=== PATIENT | male | born 1965 | race Caucasian/White ===

== ENCOUNTER → 2017-05-08 | Outpatient (CLI) | payer MEDICARE, OTHER ==
[~2017-05-08] MED LIST: ACETAMINOPHEN PO; ACETAMINOPHEN325 M1 PO; ANTACID CHEWAB1 EACH PO; BAZA TOP; BISA-LAX10 MG/SUP1 RC; BISACODYL10 MG/SUPP PR; CALCIUM 5001 TAB PO; CALCIUM CARBON500 M1 PO; CALCIUM CITRAT1 EACH PO; CERTAVITE W/LUT1 TA1 PO; CERTAVITE-LUTEI1 TA1 PO; CHRONULAC10 GM/15 M PO; CHRONULAC10 GM/151 PO; CLARITIN10 M2 PO; COLACE50 MG PO; DEEP SEA; DULCOLAX10 MG PR; E.E.S. 200200 MG/5 M PO; EES PO; FLUNISOLIDE25 ML; FLUNISOLIDE25 ML NS; KEPPRA500 M2 PO; LACTULOSE10 GM/151 PO; MIRALAX255 GM PO; NASA MIST SALIN75 ML NS; NEXIUM PO; OCEAN104 ML; PRILOSEC20 M1 PO; PRILOSEC20 MG PO; PROBIOTIC1 EACH PO; SENNA LAXATIVE8.6 M1 PO; SENNA-LAX8.6 M1 PO; SENNA8.6 M1 PO; SINGULAIR PO; ZYRTEC10 M1 PO; ZYRTEC10 M2 PO; [UNRECOGNIZED DRUG - CODE] PO
== END | disposition home or self-care (01) ==
LOC: CRAD 09:49
DX: R13.10 Dysphagia, unspecified (principal)
CPT/HCPCS: 74230; 92611; G8996-GN; G8997-GN; G8998-GN

== ENCOUNTER 2017-05-12 10:50 | Inpatient (IN) | payer MEDICARE, OTHER ==
--- NOTE | ~2017-05-12 | HP ---
Unit #: [id number] #: [id number] Patient: ZANDRA OREILLY [id number] [address] [address] [id number] MR#: [id number] NAME: ZANDRA OREILLY. ROOM: 232 Age: 51 Sex: M Admission Date: 05/12/2017 : 1965 Attending Physician: Yosi Diaz M.D. Primary Care Physician: Stefano Vasquez Sr., M.D. HISTORY AND PHYSICAL CHIEF COMPLAINT Aspiration. HISTORY OF PRESENT ILLNESS The patient is a 51-year-old male who presented to the [facility] emergency department after an aspiration. The report that I am getting from the emergency room physician is that the patient had a witnessed aspiration and the patient has been n.p.o. The patient has been admitted for observation. Discussion with the family reveals that the patient is known to have some problems with aspiration but given his underlying cri du chat syndrome there is no wish for feeding tubes and that the patient should be allowed to continue eating. The patient has been admitted for monitoring. PAST MEDICAL HISTORY Cri du chat, esophageal reflux, chronic epididymitis with hydrocele, aphasia and dysphagia, chronic constipation, history of recurrent pneumonias and aspiration, seizure disorder. PAST SURGICAL HISTORY Unable to obtain. SOCIAL HISTORY The patient is a former resident of [place], now lives at [facility]. FAMILY HISTORY Unable to obtain. ALLERGIES Influenza virus, penicillins, Levaquin. HOME MEDICATIONS 1. Zyrtec 10 mg daily. 2. Flonase two sprays each nostril daily. 3. Tylenol p.r.n. 4. Nexium 40 mg daily. 5. Senna two tabs p.o. b.i.d. 6. Erythromycin ethyl succinate 400 mg p.o. daily. 7. Lactulose daily. 8. Singulair daily. 9. Hocking spray daily. 10. Fluconazole nitrate topically t.i.d. 11. Dulcolax suppository daily p.r.n. Unit #: [id number] #: [id number] Patient: ZANDRA OREILLY REVIEW OF SYSTEMS Unable to obtain. PHYSICAL EXAMINATION VITAL SIGNS: Temperature 98.5. Pulse 72. Blood pressure 124/78. GENERAL: A 51-year-old male in no acute distress, who appears stated age. HEENT: Pupils are equally round. Extraocular movements intact. Mucous membranes dry. NECK: Supple. No JVD. No lymphadenopathy. CARDIAC: Regular rate and rhythm. No murmurs, gallops or rubs. LUNGS: Clear to auscultation bilaterally. ABDOMEN: Nontender, nondistended. Bowel sounds positive. EXTREMITIES: No cyanosis, clubbing or edema. They are warm and dry. PSYCHIATRIC: Unable to obtain. NEUROLOGICAL: Cranial nerves II-XII intact grossly. The patient moves all extremities equally and with purpose. SKIN: No rashes, bruises or ulcers. MUSCULOSKELETAL: No muscle or joint pain. No muscle or joint swelling. DIAGNOSTIC STUDIES LABORATORY: Laboratories are pending. IMAGING: None. ASSESSMENT AND PLAN 1. Aspiration: The patient will be monitored. Per family wishes diet will be continued. 2. Cri du chat syndrome: Supportive care. 3. Seizure disorder: The patient will be continued on his home antiepileptics. 4. Prophylaxis: The patient has been started on SCDs. Dictated by Joaquin Perez/alpa TD: 05/12/2017 20:55 JOB #: [id number] HISTORY AND PHYSICAL Page 1 of 1 X Yosi Diaz MD X HISTORY AND PHYSICAL
[~2017-05-12 10:50] MED LIST changes: -ACETAMINOPHEN325 M1 PO; -ANTACID CHEWAB1 EACH PO; -BAZA TOP; -DULCOLAX10 MG PR; -LACTULOSE10 GM/151 PO; -OCEAN104 ML; -SENNA8.6 M1 PO; -[UNRECOGNIZED DRUG - CODE] PO
[2017-05-12] MEDS ORDERED: BAZA TOP (16:37)
[2017-05-12] MEDS ORDERED: DULCOLAX10 MG PR (16:37)
[2017-05-12] MEDS ORDERED: ANTACID CHEWAB1 EACH PO (16:38)
[2017-05-12] MEDS ORDERED: OCEAN104 ML (16:38)
[2017-05-12] MEDS ORDERED: SINGULAIR PO (16:39)
[2017-05-12] MEDS ORDERED: LACTULOSE10 GM/151 PO (16:39)
[2017-05-12] MEDS ORDERED: [UNRECOGNIZED DRUG - CODE] PO (16:39)
[2017-05-12] MEDS ORDERED: NEXIUM PO (16:40)
[2017-05-12] MEDS ORDERED: SENNA8.6 M1 PO (16:40)
[2017-05-12] MEDS ORDERED: ZYRTEC10 M2 PO (16:41)
[2017-05-12] MEDS ORDERED: ACETAMINOPHEN325 M1 PO (16:41)
[2017-05-12] MEDS ORDERED: FLUNISOLIDE25 ML (16:41)
[2017-05-12 21:17] LABS: BASOPHIL# 0.1 X10e3 (0-0.3); EOSINOPHIL# 0.2 X10e3 (0-0.7); HEMATOCRIT 34.2 % (38.0-50.0); HEMOGLOBIN 11.2 gm/dL (13.0-16.0); LYMPHOCYTE# 2.5 X10e3 (1.0-3.5); MEAN CELL VOLUME 94.9 FL (83-96); MEAN CORPUSCULAR HGB CONC 32.7 g/dL (30-36); MEAN PLATELET VOLUME 8.2 FL (6.5-11.5); MONOCYTE# 0.7 X10e3 (0-1.0); MONOCYTE% 8.9 % (3.0-12.0); NEUTROPHIL% 53.1 % (40-75); PLATELET COUNT 227 X10e3 (140-420); RED BLOOD COUNT 3.61 X10e (3.90-5.60); RED CELL DISTRIBUTION WIDTH 14.2 % (11.0-15.5); WHITE BLOOD COUNT 7.5 X10e3 (4.0-10.5)
[2017-05-12 21:19] LABS: DIFF IND NO
[2017-05-12 21:42] LABS: ALBUMIN SERUM 3.7 g/dL (3.5-5.0); BILIRUBIN,TOTAL 0.6 mg/dL (0.2-2.0); BUN/CREATININE RATIO 33.33; CALCIUM SERUM 8.7 mg/dL (8.4-10.2); CREATININE SERUM 0.6 mg/dL (0.6-1.4); GLOM FILT RATE Estimated 116.5 mL/min (>60); POTASSIUM 4.2 mmol/L (3.5-5.1); PROTEIN TOTAL SERUM 7.4 g/dL (6.0-8.3)
== END 2017-05-16 21:00 | DRG 178 ==
LOC: CED 10:50 → CEDOF 16:52 → C2A 17:10 → CEDOF 17:10 → C2A 21:16 → CEDOF 05-14 08:50 → C2A 05-14 08:50
PROVIDERS: Internal Medicine
DX: J69.0 Pneumonitis due to inhalation of food and vomit (principal); Q93.4 Deletion of short arm of chromosome 5; F73 Profound intellectual disabilities; R47.01 Aphasia; G40.909 Epilepsy, unspecified, not intractable, without status epilepticus; Z88.0 Allergy status to penicillin; Z88.7 Allergy status to serum and vaccine; G80.9 Cerebral palsy, unspecified
CPT/HCPCS: 36415; 80053; 85025; 99284